=== PATIENT | male | born 1975 | race Caucasian/White ===

== ENCOUNTER → 2016-09-29 | Outpatient (CLI) | payer OTHER ==
[~2016-09-29] MED LIST: IOHEXOL 240 MG/ML 50ML VIAL. PO ONE; IOHEXOL 300 MG/ML 100ML VIAL. IV ONE
--- NOTE | 2016-09-29 11:52 | KCIC ---
Indication: Hematuria and right-sided abdominal pain. Axial imaging through the abdomen and pelvis was performed after the administration of intravenous contrast. One or more of the following individualized dose reduction techniques were utilized for this examination: 1. Automated exposure control 2. Adjustment of the mA and/or kV according to patient size 3. Use of iterative reconstruction technique Comparison is made with prior CT from 08/24/2008. The lung bases are clear. No focal liver mass is identified. The gallbladder is unremarkable. The pancreas and spleen are unremarkable. No adrenal mass is identified. Tiny cortical low densities are identified within the kidneys, too small to characterize but perhaps small cysts. No definite calculi are identified. No hydronephrosis is identified. The ureters are nondilated. No ureteral calculi or bladder calculi are detected. The small and large bowel loops are normal caliber. The appendix is visualized and unremarkable. There is no ascites. No inflammatory process is detected. There is a fat-containing right inguinal hernia. IMPRESSION: No acute feature in the abdomen or pelvis is identified. Electronically signed by: Mariano Barahona MD (09/29/2016 11:49 AM) [id number]
== END | disposition home or self-care (01) ==
LOC: KCIC CT 08:41
PROVIDERS: ATTEND Family Medicine
DX: K40.90 Unilateral inguinal hernia, without obstruction or gangrene, not specified as recurrent (principal); R31.9 Hematuria, unspecified
CPT/HCPCS: 74177; Q9966; Q9967